=== PATIENT | male | born 1975 | race Caucasian/White ===

== ENCOUNTER 2020-01-23 22:05 | Emergency (ER) | payer OTHER ==
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
== END 2020-01-23 22:48 | disposition home or self-care (01) ==
LOC: JD.ED 22:05
DX: S20.211A Contusion of right front wall of thorax, initial encounter (principal); V48.6XXA Car passenger injured in noncollision transport accident in traffic accident, initial encounter
CPT/HCPCS: 71045; 71045-26; 99285-25